=== PATIENT | female | born 1995 | race Caucasian/White ===

== ENCOUNTER 2017-07-12 17:06 | Emergency (ER) | payer BC ==
[~2017-07-12] VITALS: Ht 160 cm; Wt 86.4 kg
[2017-07-12] MEDS ORDERED: ONDANSETRON 2MG/ML, 2ML IVPush ONE (17:30)
[2017-07-12] MEDS ORDERED: SODIUM CHLORIDE FLUSH 10ML SYR IVF ONE (17:30)
[2017-07-12] MEDS ORDERED: SODIUM CHLORIDE 0.9% 1,000ML IVBOLUS ONE (17:30)
[2017-07-12 17:35] LABS: WHITE BLOOD COUNT 8.9 x10^3/uL (4.5-13.2)
[2017-07-12 17:36] LABS: HEMATOCRIT 43.1 % (34.6-47.8); HEMOGLOBIN 14.6 g/dL (11.7-16.4)
[2017-07-12 17:48] LABS: BLOOD UREA NITROGEN 11 mg/dL (7-18)
[2017-07-12 17:55] LABS: ASPARTATE AMINO TRANSFERASE 22 U/L (15-37)
[2017-07-12 18:01] LABS: PATH.CAST-FLAG NOT PRESENT; SPERM-FLAG NOT PRESENT; SRC-FLAG NOT PRESENT; XTAL-FLAG NOT PRESENT; YLC-FLAG NOT PRESENT
[2017-07-12 19:24] VITALS: BP 129/81
== END 2017-07-12 20:00 | disposition home or self-care (01) ==
LOC: ED 19:47
DX: R10.33 Periumbilical pain (principal)
CPT/HCPCS: 36415; 74020; 80053; 81001; 83690; 84703; 85025; 87086; 99285

== ENCOUNTER 2017-07-14 12:28 | Emergency (ER) | payer BC ==
[~2017-07-14] VITALS: Ht 160 cm; Wt 86.0 kg
[2017-07-14] MEDS ORDERED: SODIUM CHLORIDE 0.9% 1,000 ML IV ONE (13:00)
[2017-07-14] MEDS ORDERED: SODIUM CHLORIDE 0.9% 1,000ML IVBOLUS ONE (13:00)
[2017-07-14 13:15] LABS: HEMATOCRIT 43.3 % (34.6-47.8); HEMOGLOBIN 14.7 g/dL (11.7-16.4)
[2017-07-14] MEDS ORDERED: SERT25TA3 PO (13:27)
[2017-07-14 13:28] LABS: ASPARTATE AMINO TRANSFERASE 24 U/L (15-37); BLOOD UREA NITROGEN 12 mg/dL (7-18)
[2017-07-14] MEDS ORDERED: ONDANSETRON 2MG/ML, 2ML ONE (14:43)
[2017-07-14] MEDS ORDERED: morphine SULFATE 10 MG/ML, 1ML ONE (14:43)
[2017-07-14 15:00] VITALS: BP 124/72
[2017-07-14] MEDS ORDERED: ONDANSETRON 2MG/ML, 2ML IVPush ONE (15:00)
[2017-07-14] MEDS ORDERED: MORPHINE SULFATE 4 MG/ML, 1ML IVPush PRN (15:00)
[2017-07-14] MEDS ORDERED: OMNIPAQUE 350 MG/ML, 100ML BOTTLE ONE (15:39)
== END 2017-07-14 16:33 | disposition home or self-care (01) ==
LOC: ED 13:48
DX: D27.0 Benign neoplasm of right ovary (principal)
CPT/HCPCS: 36415; 74177; 80053; 81001; 83690; 85025; 96361; 96374; 96375; 99285; J2405; J7030; Q9967